=== PATIENT | female | born 1990 | race Caucasian/White ===

== ENCOUNTER 2017-01-25 18:52 | Emergency (ER) | payer BC ==
[~2017-01-25] VITALS: Ht 167.6 cm; Wt 72.2 kg
[2017-01-25] MEDS ORDERED: SODIUM CHLORIDE 0.9% 1,000 ML IV ONE (19:09)
[2017-01-25] MEDS ORDERED: SODIUM CHLORIDE 0.9% 1,000ML IVBOLUS ONE (19:30)
[2017-01-25] MEDS ORDERED: LORazepam 2 MG/ML, 1ML IVPush ONE (19:30)
[2017-01-25 19:31] LABS: HEMATOCRIT 44.8 % (34.6-47.8); HEMOGLOBIN 15.6 g/dL (11.7-16.4); WHITE BLOOD COUNT 11.8 x10^3/uL (3.4-10)
[2017-01-25 19:41] LABS: ASPARTATE AMINO TRANSFERASE 33 U/L (15-37); BLOOD UREA NITROGEN 16 mg/dL (7-18)
[2017-01-25] MEDS ORDERED: LORazepam 2 MG/ML, 1ML ONE (19:52)
[2017-01-25] MEDS ORDERED: ONDANSETRON 2MG/ML, 2ML ONE (19:54)
[2017-01-25 21:50] LABS: DAU SCREEN DISCLAIMER
[2017-01-25] MEDS ORDERED: ONDANSETRON ODT 8 MG ONE (22:42)
[2017-01-25 22:48] VITALS: BP 102/64
== END 2017-01-25 22:51 | disposition home or self-care (01) ==
LOC: ED 22:40
DX: R41.0 Disorientation, unspecified (principal); T41.3X5A Adverse effect of local anesthetics, initial encounter; Y92.89 Other specified places as the place of occurrence of the external cause
CPT/HCPCS: 36415; 70450; 80048; 80076; 80307; 82040; 82962; 83050; 84703; 85025; 93005; 96361; 96374; 99285; J2060; J7030; G0479

== ENCOUNTER 2018-10-17 21:49 | Inpatient (IN) | payer BC ==
[~2018-10-17] VITALS: Ht 170.2 cm; Wt 95.4 kg
[2018-10-17 21:57] VITALS: BP 129/59
[2018-10-17] MEDS ORDERED: PREN-3 PO (22:03)
[2018-10-17] MEDS ORDERED: LACTATED RINGERS 1,000 ML IVBOLUS ONE (23:30)
[2018-10-18] MEDS: LACTATED RINGERS 1,000 ML IV SCH ×6 (00:13→21:40)
[2018-10-18] MEDS ORDERED: NEWBORN KIT ONE (08:55)
[2018-10-18] MEDS ORDERED: OXYTOCIN 30U/ 0.9% NaCL 500ML 500 ML ONE (08:55)
[2018-10-18] MEDS ORDERED: MISOPROSTOL 200 MCG TABLET ONE (08:55)
[2018-10-18] MEDS ORDERED: LACTATED RINGERS 1,000 ML IV SCH (09:03)
[2018-10-18] MEDS ORDERED: SODIUM CITRATE/CITRIC ACID 15 ML UDC ONE (09:05)
[2018-10-18] MEDS ORDERED: METOCLOPRAMIDE 5 MG/ML, 2ML ONE (09:05)
[2018-10-18] MEDS ORDERED: FENTANYL PF 100 MCG/2ML ONE (09:19)
[2018-10-18] MEDS ORDERED: CEFAZOLIN 1,000 MG ONE ×2 (09:21)
[2018-10-18] MEDS ORDERED: OXYTOCIN 10 UNITS/ML, 1ML ONE ×3 (09:21)
[2018-10-18] MEDS ORDERED: SODIUM CITRATE/CITRIC ACID 15 ML UDC PO ONE (09:30)
[2018-10-18] MEDS ORDERED: METOCLOPRAMIDE 5 MG/ML, 2ML IV ONE (09:30)
[2018-10-18] MEDS ORDERED: LACTATED RINGERS 1,000 ML IVBOLUS ONE (09:30)
[2018-10-18 09:40] LABS: BASOPHILS # (AUTO) 0.02 x10^3/uL (0-0.1); BASOPHILS % (AUTO) 0 % (0-1); EOSINOPHILS # (AUTO) 0.02 x10^3/uL (0-0.4); EOSINOPHILS % (AUTO) 0 % (1-7); LYMPHOCYTES # (AUTO) 1.14 x10^3/uL (1-3.4); LYMPHOCYTES % (AUTO) 11 % (22-44); MD NO; MEAN CORPUSCULAR HEMOGLOBIN 32.9 pg (27.0-34.8); MEAN CORPUSCULAR HGB CONC 33.8 g/dL (32.4-35.8); MEAN CORPUSCULAR VOLUME 97.2 fL (80-100); MEAN PLATELET VOLUME 9.6 fL (7.4-10.4); MONOCYTES # (AUTO) 0.56 x10^3/uL (0.2-0.8); MONOCYTES % (AUTO) 6 % (2-9); NEUTROPHILS # (AUTO) 8.32 x10^3/uL (1.8-6.8); NEUTROPHILS % (AUTO) 83 % (42-75); PLATELET COUNT 126 x10^3/uL (130-400); RED BLOOD COUNT 4.41 x10^6/uL (3.82-5.3); RED CELL DISTRIBUTION WIDTH 13.6 % (9.6-15.2)
[2018-10-18] MEDS ORDERED: MEPERIDINE/PF 25MG/ML,1ML IVPush PRN (10:00)
[2018-10-18] MEDS ORDERED: ONDANSETRON 2MG/ML, 2ML IV PRN ×2 (10:00→12:00)
[2018-10-18] MEDS ORDERED: DIPHENHYDRAMINE 50 MG/ML, 1ML IVPush PRN (10:00)
[2018-10-18] MEDS ORDERED: FENTANYL PF 100 MCG/2ML IV PRN (10:00)
[2018-10-18] MEDS ORDERED: OXYcodone 5 MG/5 ML ORAL.SOL UDC PO PRN (10:00)
[2018-10-18] MEDS ORDERED: MORPHINE SULFATE 4 MG/ML, 1ML IVPush PRN (10:00)
[2018-10-18] MEDS ORDERED: EPHEDRINE 50 MG/ML, 1ML IVPush PRN (10:00)
[2018-10-18] MEDS ORDERED: PROMETHAZINE 25 MG/ML, 1ML IV PRN (10:00)
[2018-10-18] MEDS ORDERED: GLYCOPYRROLATE 0.4 MG/2 ML, 2ML ONE (10:50)
[2018-10-18] MEDS ORDERED: EPHEDRINE 50 MG/ML, 1ML ONE (10:50)
[2018-10-18] MEDS ORDERED: PHENYLEPHRINE 10 MG/ML ONE (10:50)
[2018-10-18] MEDS ORDERED: ONDANSETRON 2MG/ML, 2ML ONE (11:14)
[2018-10-18] MEDS: OXYTOCIN 30U/ 0.9% NaCL 500ML 500 ML IV SCH ×2 (11:40→21:40)
[2018-10-18] MEDS ORDERED: MISOPROSTOL 200 MCG TABLET PR PRN (12:00)
[2018-10-18] MEDS ORDERED: CARBOPROST TROMETHAMINE 250 MCG/ML, 1ML IM PRN (12:00)
[2018-10-18] MEDS ORDERED: OXYcodone/APAP 5/325MG TABLET PO PRN ×2 (12:00)
[2018-10-18] MEDS ORDERED: BISACODYL 10 MG SUPP PR PRN (12:00)
[2018-10-18] MEDS ORDERED: MEASLES,MUMPS&RUBELLA VACC/PF 0.5 ML SQ-VACC PRN (12:00)
[2018-10-18] MEDS ORDERED: SIMETHICONE 80 MG CHEW TAB PO PRN (12:00)
[2018-10-18] MEDS ORDERED: GLYCERIN ADULT SUPP PR PRN (12:00)
[2018-10-18] MEDS ORDERED: MEPERIDINE/PF 50 MG/ML IVPush PRN (12:00)
[2018-10-18] MEDS ORDERED: METHYLERGONOVINE 0.2 MG/ML IM PRN (12:00)
[2018-10-18] MEDS ORDERED: METOCLOPRAMIDE 5 MG/ML, 2ML IV PRN (12:00)
[2018-10-18] MEDS ORDERED: ACETAMINOPHEN 325 MG TABLET PO PRN ×2 (12:00)
[2018-10-18] MEDS ORDERED: DIPH,PERTUSS(ACELL),TET VAC/PF NC IM-VACC PRN (12:00)
[2018-10-18 14:00] VITALS: BP 120/71
[2018-10-18] MEDS: KETOROLAC 30 MG/1 ML IV SCH ×2 (17:35→23:10)
[2018-10-18 18:00] VITALS: BP 120/77
[2018-10-18 19:20] VITALS: BP 124/73
[2018-10-18 20:18] LABS: BASOPHILS # (AUTO) 0.04 x10^3/uL (0-0.1); BASOPHILS % (AUTO) 0 % (0-1); EOSINOPHILS # (AUTO) 0.18 x10^3/uL (0-0.4); EOSINOPHILS % (AUTO) 2 % (1-7); LYMPHOCYTES % (AUTO) 10 % (22-44); MD NO; MEAN CORPUSCULAR HEMOGLOBIN 33.5 pg (27.0-34.8); MEAN CORPUSCULAR HGB CONC 34.1 g/dL (32.4-35.8); MEAN CORPUSCULAR VOLUME 98.3 fL (80-100); MEAN PLATELET VOLUME 9.5 fL (7.4-10.4); MONOCYTES # (AUTO) 0.62 x10^3/uL (0.2-0.8); MONOCYTES % (AUTO) 5 % (2-9); NEUTROPHILS # (AUTO) 10.08 x10^3/uL (1.8-6.8); NEUTROPHILS % (AUTO) 83 % (42-75); PLATELET COUNT 116 x10^3/uL (130-400); RED BLOOD COUNT 3.87 x10^6/uL (3.82-5.3); RED CELL DISTRIBUTION WIDTH 13.3 % (9.6-15.2)
[2018-10-18 23:45] VITALS: BP 117/74
[2018-10-19] MEDS: LACTATED RINGERS 1,000 ML IV SCH ×5 (03:40→19:40)
[2018-10-19 04:15] VITALS: BP 112/60
[2018-10-19] MEDS: KETOROLAC 30 MG/1 ML IV SCH ×5 (05:05→23:14)
[2018-10-19] MEDS: OXYTOCIN 30U/ 0.9% NaCL 500ML 500 ML IV SCH ×2 (07:40→17:40)
[2018-10-19 07:50] VITALS: BP 106/73
[2018-10-19] MEDS: PRENATAL VIT/IRON/FA 1 EACH TABLET PO SCH (11:26)
[2018-10-19 20:50] VITALS: BP 117/78
[2018-10-19] MEDS: DOCUSATE 100 MG CAPSULE PO PRN (23:14)
[2018-10-20] MEDS: OXYTOCIN 30U/ 0.9% NaCL 500ML 500 ML IV SCH ×3 (03:40→23:40)
[2018-10-20] MEDS: LACTATED RINGERS 1,000 ML IV SCH ×6 (03:40→23:40)
[2018-10-20] MEDS: KETOROLAC 30 MG/1 ML IV SCH ×2 (05:09→12:10)
[2018-10-20 07:11] VITALS: BP 122/78
[2018-10-20] MEDS ORDERED: KETOROLAC 30 MG/1 ML ONE (12:00)
[2018-10-20] MEDS: PRENATAL VIT/IRON/FA 1 EACH TABLET PO SCH (12:10)
[2018-10-20] MEDS: DOCUSATE 100 MG CAPSULE PO PRN ×2 (12:10→20:34)
[2018-10-20 20:00] VITALS: BP 112/73
[2018-10-20] MEDS: IBUPROFEN 600 MG TABLET PO PRN (20:34)
[2018-10-21] MEDS: LACTATED RINGERS 1,000 ML IV SCH ×5 (03:40→19:40)
[2018-10-21] MEDS ORDERED: IBUPROFEN 600 MG TABLET ONE (06:05)
[2018-10-21] MEDS: IBUPROFEN 600 MG TABLET PO PRN ×3 (06:16→22:41)
[2018-10-21] MEDS: PRENATAL VIT/IRON/FA 1 EACH TABLET PO SCH (07:55)
[2018-10-21] MEDS: DOCUSATE 100 MG CAPSULE PO PRN ×2 (07:55→22:41)
[2018-10-21 08:40] VITALS: BP 116/68
[2018-10-21] MEDS: OXYTOCIN 30U/ 0.9% NaCL 500ML 500 ML IV SCH ×2 (09:40→19:40)
[2018-10-21 20:00] VITALS: BP 113/74
[2018-10-22] MEDS: LACTATED RINGERS 1,000 ML IV SCH ×3 (03:40→11:40)
[2018-10-22] MEDS: OXYTOCIN 30U/ 0.9% NaCL 500ML 500 ML IV SCH (05:40)
[2018-10-22] MEDS ORDERED: IBUP-1222 PO (07:40)
[2018-10-22] MEDS ORDERED: OXYC-302 PO (07:41)
[2018-10-22 08:40] VITALS: BP 117/72
[2018-10-22] MEDS: PRENATAL VIT/IRON/FA 1 EACH TABLET PO SCH (08:42)
[2018-10-22] MEDS: IBUPROFEN 600 MG TABLET PO PRN (08:42)
[2018-10-22] MEDS: DOCUSATE 100 MG CAPSULE PO PRN (08:42)
== END 2018-10-22 13:55 | disposition home or self-care (01) | DRG 788 ==
LOC: LDOP 21:49 → LDIP 23:40 → OBSVTOIN 10-18 09:03 → 2NW 10-18 13:40
PROVIDERS: ADMIT Obstetrics & Gynecology; ATTEND Obstetrics & Gynecology
PROC: 10D00Z1 Extraction of Products of Conception, Low, Open Approach (ICD-10-PCS; principal; 2018-10-18)
DX: O32.1XX0 Maternal care for breech presentation, not applicable or unspecified (principal); O36.8130 Decreased fetal movements, third trimester, not applicable or unspecified; O69.1XX0 Labor and delivery complicated by cord around neck, with compression, not applicable or unspecified; O76 Abnormality in fetal heart rate and rhythm complicating labor and delivery; Z37.0 Single live birth; Z3A.37 37 weeks gestation of pregnancy
CPT/HCPCS: 36415; 76815; 76819; 82803; 85025; 86850; 86900; 90715; G0378; J0690; J1885; J2405; J3010; J2370; J2590; J2765; J7120